=== PATIENT | male | born 1955 | race Caucasian/White ===

== ENCOUNTER 2016-03-03 10:23 | Inpatient (IN) | payer MEDICAID, OTHER ==
[2016-03-03 10:51] LABS: Hematocrit 40.4 % (42.0-52.0); Hemoglobin 14.1 gm/dL (13.5-18.0); Mean Cell Volume 99.5 fl (78-100); Mean Corpuscular Hemoglobin 34.7 pg (27-31); Mean Corpuscular Hgb Conc 34.9 g/dl (32-36); Mean Platelet Volume 9.6 fl (6.0-9.5); Neutrophil # 3.5 K/mm3 (1.3-6.0); Neutrophil % 60.3 % (42-75.0); Platelet Count 185 K/mm3 (150-450); Red Blood Count 4.06 M/mm3 (4.7-6.0); Red Cell Distribution Width 12.9 % (11.5-14.0); White Blood Count 5.8 K/mm3 (4.0-10.5)
[2016-03-03 10:59] LABS: INR 1.01 INR (0.90-1.10); Prothrombin Time (Patient) 10.5 Seconds (9.4-11.4)
[2016-03-03 11:04] LABS: Albumin * 3.4 gm/dl (3.4-5.0); Anion Gap 13.7 mmol/L (6.8-13.8); BUN/Creatinine Ratio 18.1 (9.0-21.6); Ca. Corrected For Albumin 8.9 mg/dL (8.4-10.2); Calcium * 8.7 mg/dL (7.9-10.9); Potassium 3.7 mmol/L (3.4-4.6); Total Protein 6.9 gm/dL (6.2-8.2)
--- NOTE | 2016-03-03 12:25 | ERNOTE ---
Medical Problem HPI - General Chief Complaint: General Assessment Source: patient Exam Limitations: no limitations - Immun/Allergies/Home Medications Immunizations: IMMUNIZATION HX History of Influenza Vaccine No Hx Pneumococcal Vaccination No Allergies/Adverse Reactions: Allergies No Known Allergies Allergy (Unverified 03/03/16 10:53) Home Medications: HOME MEDICATIONS NK [No Home Medication] 03/03/16 [Last Taken Unknown] - History of Present History Narrative: Pt developed right sided facial droop and slurred speech on Monday, 4 days ago. Pt became worried about a possible CVA and came into the ED. Timing: constant Severity: moderate Review of Systems - Review of Systems Constitutional: Present: See HPI EYE: Present: no symptoms reported ENT: Present: no symptoms reported Respiratory: Present: no symptoms reported Cardiology: Present: no symptoms reported Gastrointestinal/Abdominal: Present: no symptoms reported Genitourinary: Present: no symptoms reported Musculoskeletal: Present: no symptoms reported Skin: Present: no symptoms reported Neurological: Present: See HPI, weakness Endocrine: Present: no symptoms reported Hematologic/Lymphatic: Present: no symptoms reported Psych: Present: no symptoms reported - Patient's Past Medical History Patient History - Medical: No pertinent hx Patient History - Cancer: No Hx of Cancer Patient History - Surgical Procedures: No surgical history - Social History Living Situations: home Smoking Status: Current every day smoker Physical Exam - Physical Exam General Appearance: Present: wd/wn, alert, mild distress Eye Exam: Normal inspection: bilateral, PERRL: bilateral Ears, Nose, Throat: Present: normal ENT inspection, hearing grossly normal, normal pharynx Neck: Present: normal inspection, nontender Respiratory: Present: no respiratory distress, normal breath sounds, no accessory muscle use, chest nontender, lungs clear Cardiovascular/Chest: Present: regular rate, rhythm, no murmur, normal peripheral pulses Gastrointestinal/Abdominal: Present: normal bowel sounds, nontender, nondistended, soft, no organomegaly Rectal Exam: Present: deferred Back Exam: Present: normal inspection, normal range of motion Extremity Exam: Present: normal inspection, non-tender, no edema, normal range of motion Neurological Exam: Present: alert, oriented, normal mood/affect, facial droop, other - slurred speech Skin Exam: Present: normal color, warm/dry Lymphatic Exam: Present: no adenopathy ED Progress - Results and Orders Patient's Lab Results:: I have reviewed the patient's lab results. - Vital Signs Patient's Vital Signs:: I have reviewed the patient's vital signs. Vital Signs: Vital Signs 03/03/16 03/03/16 03/03/16 10:33 10:44 11:02 Temperature 96.6 C H Pulse Rate 71 68 69 Respiratory 12 12 15 Rate Blood Pressure 137/77 146/77 121/84 O2 Sat by Pulse 97 98 95 Oximetry 03/03/16 03/03/16 11:29 11:57 Temperature Pulse Rate 70 64 Respiratory 12 14 Rate Blood Pressure 114/81 121/77 O2 Sat by Pulse 96 96 Oximetry - X-Ray X-Ray #1 X-Ray: chest Interpretation: Reviewed by me - CT/Ultrasound CT/Ultrasound Narrative: CT of the head results reviewed. - Progress/Reassessment Chief Complaint: General Assessment Progress:: Unchanged - Transfer of Care Expected Disposition: Admit Plan - Plan Plan: Pt will likely need an MRI/MRA of the head and neck and an echocardiogram. Possibility of MS exists as well so that will be assessed as well. Departure - Departure Clinical Impression: CVA (cerebral vascular accident) Qualifiers: CVA mechanism: unspecified Qualified Code(s): I63.9 - Cerebral infarction, unspecified Disposition: [facility] Condition: Fair - Critical Care Total Time (mins): 35 Critical Care: TPA was considered, however the patients symptoms started 4 days ago so he is out of the time requirements.
[2016-03-03] MEDS ORDERED: NICOTINE 21 MG PATC TD SCH (13:15)
[2016-03-03 13:29] LABS: Chol/HDL Risk Ratio 3.8 mg/dL (3.3-5.0)
[2016-03-03] MEDS ORDERED: guaiFENesin 100 MG/5 ML BTL PO PRN (13:55)
--- NOTE | 2016-03-03 13:55 | HP ---
Chief Complaint - Chief Complaint Date of Service: 03/03/16 Time of Service: 13:18 Chief Complaint: Facial droop, slurred speech and drooling History of Present Illness: 61 years old male adm to the hospital through the ER, with reports of slurred speech, drooling and right side facial droop that began 4 days ago. Pt stated on Monday he woke up drooling, he felt his face was a little drooping and his speech was slurred. He lives alone and stated his S/S didn't progress or got better so he came to the ER today. He has been relatively healthy beside lower back pain, that inhibits his ability to work. He smoke 1 pack cigarette daily and drink 4 or more rum daily. He think his left arm was a little weak but had since resolved before coming to the ER. His speech has gotten better and he was able to eat and drink while at home without difficulty. He has no primary provider and was last seen at [facility] for disability evaluation for his lower back pain. In ER pt consider for TPA but is 4 days late out of the time frame. CT head : asymmetric 13x14 hypodensity in the right pre-ventricular white matter could be due to chronic micro-vascular white matter ischemic change, but consider potential ischemic either acute or sub-acute. - Patient's Past Medical History Patient History - Medical: No pertinent hx, Alcohol Abuse, Chronic Pain - lower back pain, Other - smoker Patient History - Cardiac/Respiratory: No pertinent hx Patient History - Cancer: No Hx of Cancer Patient History - Surgical Procedures: No surgical history - Social History Living Situations: alone Does anyone smoke in the home?: Yes - pt smokes 1 pk daily Smoking Status: Current every day smoker Have you smoked in the past 12 months: Yes - 1 pk daily Do you dip or chew tobacco: No Patient requests Smoking Cessation Consult: No Initiate information on Smoking Cessation: Yes Alcohol Use: heavy - Rum daily Drug Use: none - Immunizations Immunizations Up to Date: No - unknown Hx Pneumococcal Vaccination: No History of Influenza Vaccine: No Review Of Systems (GEN) - Review of Systems Generalized/Overall Review: Present: No Symptoms Reported EENTM: Present: Other - drooling, slurred speech, facial droop Respiratory: Present: No Symptoms Reported Cardiac: Present: No Symptoms Reported Abdominal: Present: No Symptoms Reported Genitourinary: Present: No Symptoms Reported Musculoskeletal: Present: No Symptoms Reported Neurological: Present: No Symptoms Reported Skin: Present: No Symptoms Reported Endocrine: Present: No Symptoms Reported Allergies/Adverse Reactions: Allergies Allergy/AdvReac Type Severity Reaction Status Date / Time No Known Allergies Allergy Verified 03/03/16 13:07 Home Medications: HOME MEDICATIONS NK [No Home Medication] 03/03/16 [Last Taken Unknown] Exam - Exam Vital Signs: Vital Signs - Last Taken Temp 96.6 C H 03/03/16 10:33 Pulse 72 03/03/16 12:27 Resp 22 H 03/03/16 12:27 BP 120/77 03/03/16 12:27 Pulse Ox 98 03/03/16 12:27 Constitutional: Present: Alert, Oriented x3, Cooperative, Well developed, No distress, Middle aged, Looks Older than stated age ENT Exam: Present: moist mucous membranes - drooling, right side facial and mouth droop, tongue deviated to the left Eye Exam: bilateral eye: PERRL Neck: Present: full range of motion Back Exam: Present: normal inspection, no CVA tenderness, no vertebral tenderness Breasts: Present: Exam deferred Respiratory: Present: chest non-tender, lungs clear, normal breath sounds, no respiratory distress Cardiovascular/Chest: Present: normal peripheral pulses, regular rate, rhythm, no chest tenderness, no edema Peripheral Pulses: dorsalis-pedis (R): 3+, dorsalis-pedis (L): 3+ Abdomen: Present: Normal bowel sounds, soft, nontender, nondistended, no rebound tenderness /Rectal: Present: Exam deferred Extremity: Present: normal range of motion, non-tender, normal inspection, no pedal edema, no calf tenderness Skin Exam: Present: normal color, warm/dry, no cyanosis Lymphatic: Present: no adenopathy Neurologic: Present: oriented x 3, facial droop - drooling, right side facial and mouth droop, tongue deviated to the left Appearance: Present: appropriate appearance Eye contact: Present: cooperative, good eye contact Thoughts: Present: normal thought pattern Diagnostic Studies: Laboratory Results WBC 5.8 K/mm3 (4.0-10.5) 03/03/16 10:43 RBC 4.06 M/mm3 (4.7-6.0) L 03/03/16 10:43 Hgb 14.1 gm/dL (13.5-18.0) 03/03/16 10:43 Hct 40.4 % (42.0-52.0) L 03/03/16 10:43 MCV 99.5 fl (78-100) 03/03/16 10:43 MCH 34.7 pg (27-31) H 03/03/16 10:43 MCHC 34.9 g/dl (32-36) 03/03/16 10:43 RDW 12.9 % (11.5-14.0) 03/03/16 10:43 Plt Count 185 K/mm3 (150-450) 03/03/16 10:43 MPV 9.6 fl (6.0-9.5) H 03/03/16 10:43 Immature Gran % (Auto) 0.30 % (0.001-0.429) 03/03/16 10:43 Immature Gran # (Auto) 0.02 K/mm3 (0.000-0.0310) 03/03/16 10:43 Neutrophils % 60.3 % (42-75.0) 03/03/16 10:43 Lymphocytes % 23.0 % (20-51) 03/03/16 10:43 Monocytes % 11.2 % (0.0-9) H 03/03/16 10:43 Eosinophils % 4.5 % (0.0-3.0) H 03/03/16 10:43 Basophils % 0.7 % (0.0-1.0) 03/03/16 10:43 Nucleated RBC % 0.0 k/mm3 (0-1) 03/03/16 10:43 Neutrophils # 3.5 K/mm3 (1.3-6.0) 03/03/16 10:43 Lymphocytes # 1.3 k/mm3 (1.5-3.5) L 03/03/16 10:43 Monocytes # 0.7 k/mm3 (0.0-1.0) 03/03/16 10:43 Eosinophils # 0.3 k/mm3 (0.0-0.7) 03/03/16 10:43 Absolute Basophils 0.0 k/mm3 (0.0-0.1) 03/03/16 10:43 PT 10.5 Seconds (9.4-11.4) 03/03/16 10:43 INR (Anticoag Therapy) 1.01 INR (0.90-1.10) 03/03/16 10:43 Sodium 140 mmol/L (132-142) 03/03/16 10:43 Plasma Sodium 140 mmol/L (130-142) 03/03/16 10:43 Potassium 3.7 mmol/L (3.4-4.6) 03/03/16 10:43 Chloride 104 mmol/L (97-106) 03/03/16 10:43 Carbon Dioxide 26.0 mmol/L (24-32.6) 03/03/16 10:43 Anion Gap 13.7 mmol/L (6.8-13.8) 03/03/16 10:43 BUN 17 mg/dL (6-23) 03/03/16 10:43 Creatinine 0.94 mg/dL (0.4-1.4) 03/03/16 10:43 Est GFR (Non-Af Amer) 87 mL/min (60-130) 03/03/16 10:43 BUN/Creatinine Ratio 18.1 (9.0-21.6) 03/03/16 10:43 Random Glucose 85 mg/dL (70-110) 03/03/16 10:43 Calcium 8.7 mg/dL (7.9-10.9) 03/03/16 10:43 Calcium Adj for Albumin 8.9 mg/dL (8.4-10.2) 03/03/16 10:43 Magnesium 2.0 mg/dL (1.2-2.8) 03/03/16 10:43 Total Bilirubin 1.0 mg/dL (0.0-1.1) 03/03/16 10:43 AST 35 U/L (0-48) 03/03/16 10:43 ALT 38 U/L (19-67) 03/03/16 10:43 Alkaline Phosphatase 67 U/L (50-170) 03/03/16 10:43 Total Protein 6.9 gm/dL (6.2-8.2) 03/03/16 10:43 Albumin 3.4 gm/dl (3.4-5.0) 03/03/16 10:43 Assessment/Plan - Narrative Narrative: Cardiovascular Accident Pt arrived to the hospital 4 days after onset of S/S, outside of TPA ( pt risk factors alcohol abuse, smoker and older adult) CT head noted MRI/MRA head pending ON adm EKG: Continue with Telemetry 2D echo pending Carotid duplex pending Lipid panel pending Neuro check Q shift Keep NPO until speech/ swallow done. PT/OT evaluation and treatment Alcohol abuse Pt reports of 4 or more rums daily CIWA protocols Safety measures while hospitalized Smoker Smoking cessation education Nicotine patch Acute on chronic Bronchititis/ reactive airway disease- likely due to his heavy smoking pt denies S/S, beside pt with smokers cough smoking cessation education Mucinex Chronic Lower back pain- stable VTE ppx: SCD/ Lovenox initiate after MRI/MRA GI ppx: PPI Code Status: Full - Assessment/Plan (1) CVA (cerebral vascular accident) Problem: Acute Qualifiers: CVA mechanism: unspecified Qualified Code(s): I63.9 - Cerebral infarction, unspecified (2) Alcohol abuse Problem: Chronic (3) Smoker Problem: Chronic (4) Bronchitis Problem: Chronic (5) Chronic lower back pain Problem: Chronic Qualifiers: Back pain laterality: unspecified
[2016-03-03] MEDS ORDERED: ASPIRIN 325 MG TABLET.DR PO ONE ×2 (17:09→21:00)
[2016-03-03] MEDS ORDERED: ASPIRIN 300 MG SUPP.RECT RC ONE (17:14)
[2016-03-03] MEDS ORDERED: FLU VACC QS2016-17 36MOS UP/PF 60 MCG/0.5 ML DISP.SYRIN IM ONE (19:00)
[2016-03-04] MEDS ORDERED: PANTOPRAZOLE SODIUM 40 MG TABLET.EC PO SCH (07:00)
[2016-03-04 07:06] VITALS: BP 110/66
--- NOTE | 2016-03-04 08:38 | DS ---
(1) CVA (cerebral vascular accident) Problem: Acute Qualifiers: CVA mechanism: unspecified Qualified Code(s): I63.9 - Cerebral infarction, unspecified (2) Alcohol abuse Problem: Chronic (3) Smoker Problem: Chronic (4) Bronchitis Problem: Chronic (5) Chronic lower back pain Problem: Chronic Qualifiers: Back pain laterality: unspecified Description of Stay: Date of admission: 03/03/16 Date of Discharge : 03/04/16 Hospital Course: 61 years old male adm to the hospital through the ER, with reports of slurred speech, drooling and right side facial droop that began 4 days priro to adm. Pt stated on Monday he woke up drooling, he felt his face was a little drooping and his speech was slurred. He lives alone and stated his S/S didn't progress or got better so he came to the ER. He has been relatively healthy beside lower back pain, that inhibits his ability to work. He smoke 1 pack cigarette daily and drink 4 or more rum daily. He think his left arm was a little weak but had since resolved before coming to the ER. His speech has gotten better and he was able to eat and drink while at home without difficulty. He has no primary provider and was last seen at [facility] for disability evaluation for his lower back pain. In ER pt consider for TPA but is 4 days late out of the time frame. CT head : asymmetric 13x14 hypodensity in the right pre-ventricular white matter could be due to chronic micro-vascular white matter ischemic change, but consider potential ischemic either acute or sub-acute. During this adm pt stated his speech continue to improve, he eat and drink without difficulty. Pt likely had thrombo-embolic CVA, MRA LICA pending. Plan for follow up with PCP and neuro service upon discharge. Pt agree to use Nicotine patches, aspirin and Zocor upon discharge. Diagnostic testing : MRA brain: Stenosis vs vasospasm of the M3 segment of the left middle cerebral artery. Carotid dupplex; Right ICA stenossi < 50%, left ICA potential artifactually elevated distal left ICA increase velocity vs potential stenosis proximate 50-69 % CT head : asymmetric 13x14 hypodensity in the right pre-ventricular white matter could be due to chronic micro-vascular white matter ischemic change, but consider potential ischemic either acute or sub-acute. Procedures Performed: none Discharge Disposition: Home self care Disposition: Home self-care Condition: Stable Discharge Activity: Activity as tolerated Discharge Diet: Low fat/chol Referrals: Drew Moses MD [Consulting Physician] - Additional Patient Instructions (free text): Follow up with Dr. Torres call for appt. Make appt with neuro service and have pt follow up with speech therapist. Prescriptions (Any new or edited meds): Aspirin [Aspirin Chewable] 81 mg PO DAILY #30 tab.chew Nicotine [Nicoderm] 21 mg TD Q24H #30 patch.td24 Simvastatin [Zocor] 20 mg PO HS #30 tablet guaiFENesin [Robitussin] 100 mg PO Q4H PRN #1 btl PRN Reason: Cough Complete Home Medications List: Complete Home Medication List: Aspirin [Aspirin Chewable] 81 mg PO DAILY #30 tab.chew 03/04/16 Nicotine [Nicoderm] 21 mg TD Q24H #30 patch.td24 03/04/16 Simvastatin [Zocor] 20 mg PO HS #30 tablet 03/04/16 guaiFENesin [Robitussin] 100 mg PO Q4H PRN #1 btl 03/04/16 Amb Orders for Discharge: Speech Therapy Eval and Treat Location: Determined By Patient
--- NOTE | 2016-03-04 08:53 | ECHO ---
This report is available in the EMR
[2016-03-04] MEDS ORDERED: ENOXAPARIN SODIUM 40 MG/0.4 ML SYRG SC SCH (09:00)
[2016-03-04] MEDS ORDERED: ASPIRIN 81 MG TAB.CHEW PO SCH (09:00)
[2016-03-04] MEDS ORDERED: SIMVASTATIN 20 MG TABLET PO SCH (21:00)
== END 2016-03-04 11:22 | disposition home or self-care (01) | DRG 66 ==
LOC: ER 10:23 → MS 12:11
PROVIDERS: ADMIT Internal Medicine; ATTEND Internal Medicine
PROC: B246ZZZ Ultrasonography of Right and Left Heart (ICD-10-PCS; principal; 2016-03-03)
DX: I63.9 Cerebral infarction, unspecified (principal); R29.810 Facial weakness; J42 Unspecified chronic bronchitis; F10.10 Alcohol abuse, uncomplicated; M54.5 Low back pain; F17.200 Nicotine dependence, unspecified, uncomplicated; Z23 Encounter for immunization
CPT/HCPCS: 70450; 70544; 70553; 71020; 80053; 80061; 83735; 85025; 85610; 90686; 92522; 93005; 93306; 93880; 97165; 99291; G0008